=== PATIENT | male | born 1960 | race Caucasian/White ===

== ENCOUNTER 2021-06-11 11:07 | Emergency (ER) | payer BC, OTHER ==
--- NOTE | 2021-06-11 11:09 | ERPHSYRPT ---
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 Patient is not under significant amount of stress or different amount of stress than usual. That pain has now more localized centrally and in the substernal region and still described as a pressure. There is some sensation he has in his left upper extremity as well but the pain is not too bad there. Patient does have a history of hypothyroidism, hypertension and depression. He has history of psoriatic arthritis and has been off his methotrexate. He does take phentermine for weight loss. Patient states he took 2 baby aspirin prior to arrival. 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 Patient has not had any cardiac stents or heart surgeries performed in the past. Patient has had a sigmoidectomy in the past secondary to diverticulitis. In addition, he has had a history of a Adri fundoplication which was performed laparoscopically. Timing/Duration: today Quality: pressure Location: substernal, central Chest Pain Radiation: arm Severity of Pain-Max: moderate Severity of Pain-Current: mild (Mild to moderate in the emergency department) Modifying Factors: Improves With: nothing Associated Symptoms: denies symptoms Nitro Today/Relief: no nitro taken today Aspirin Treatment Today: 81 mg x 2, provided at home Allergies/Adverse Reactions: cefazolin Allergy (Verified 06/11/21 11:12) clarithromycin [From Biaxin] Allergy (Verified 06/11/21 11:12) Penicillins Allergy (Verified 06/11/21 11:12) Home Medications: Albuterol Sulfate [Albuterol Sulfate Hfa] 1 ea DAILY 06/11/21 [History] Citalopram Hydrobromide [Citalopram HBr] 1 ea DAILY 06/11/21 [History] Citalopram Hydrobromide [Citalopram HBr] 1 ea DAILY 06/11/21 [History] Eslicarbazepine Acetate [Aptiom] 1 ea DAILY 06/11/21 [History] Folic Acid 1 mg PO DAILY 06/11/21 [History] Levothyroxine Sodium [Levothyroxine] 125 mcg PO DAILY 06/11/21 [History] Lisinopril 10 mg [Zestril 10 MG] 20 mg DAILY 06/11/21 [History] Methotrexate Sodium 2.5 mg [Trexall 2.5 mg] 17.5 mg UD 06/11/21 [History] Nifedipine 10 mg [Procardia 10 mg] 1 ea DAILY 06/11/21 [History] Phentermine HCl 1 ea DAILY 06/11/21 [History] Travel Risk - International Travel Have you traveled outside of the country in past 3 weeks: No - Coronavirus Screening Are you exhibiting any of the following symptoms?: No Close contact with a COVID-19 positive Pt in past 14-21 Days: No - Review of Systems Constitutional: No Symptoms Eyes: No Symptoms Ears, Nose, & Throat: No Symptoms Respiratory: No Symptoms Cardiac: Chest Pain Abdominal/Gastrointestinal: No Symptoms Genitourinary Symptoms: No Symptoms Musculoskeletal: No Symptoms Skin: No Symptoms Neurological: No Symptoms Psychological: No Symptoms Endocrine: No Symptoms Hematologic/Lymphatic: No Symptoms Immunological/Allergic: No Symptoms All Other Systems: Reviewed and Negative - Past Medical History Pertinent Past Medical History: Yes - Past Surgical History Past Surgical History: Yes - Nursing Vital Signs Nursing Vital Signs: Initial Vital Signs Temperature 97.2 F 06/11/21 11:07 Pulse Rate 82 06/11/21 11:07 Respiratory Rate 18 06/11/21 11:07 Blood Pressure 150/85 06/11/21 11:07 O2 Sat by Pulse Oximetry 99 06/11/21 11:07 Pain Scale Pain Intensity 8 - Physical Exam General Appearance: no apparent distress, alert, anxiety Eye Exam: PERRL/EOMI, eyes nml inspection Ears, Nose, Throat Exam: normal ENT inspection, moist mucous membranes Neck Exam: normal inspection, non-tender, supple, full range of motion Respiratory Exam: normal breath sounds, chest tenderness, lungs clear, airway intact, No respiratory distress Cardiovascular Exam: regular rate/rhythm, normal heart sounds, normal peripheral pulses Gastrointestinal/Abdomen Exam: soft, normal bowel sounds, No tenderness Rectal Exam: not done Back Exam: normal inspection, normal range of motion, No CVA tenderness, No vertebral tenderness Extremity Exam: normal inspection, normal range of motion, pelvis stable Neurologic Exam: alert, oriented x 3, cooperative, terminal manager II-XII nml as tested, normal mood/affect, nml cerebellar function, nml station & gait, sensation nml Skin Exam: normal color, warm, dry Lymphatic Exam: No adenopathy SpO2 Interpretation: normal O2 Delivery: Room Air - Course Nursing assessment & vital signs reviewed: Yes EKG Interpreted by Me: RATE (85), Sinus Rhythm, NORMAL AXIS, NORMAL INTERVALS, NORMAL QRS, NORMAL ST-T, Other (No acute ischemic changes on today's EKG.) Ordered Tests: Active Orders 24 hr Category Date Time Status Hosting Engineer STAT Care 06/11/21 11:17 Active EKG-ER Only STAT Care 06/11/21 11:09 Active IV Insertion STAT Care 06/11/21 11:09 Active Pulse Oximetry (ED) STAT Care 06/11/21 11:09 Active CHEST 1 VIEW (PORTABLE) Stat Exams 06/11/21 11:10 Completed CHEST WITHOUT CONTRAST [CT] Stat Exams 06/11/21 13:44 Completed CBC W DIFF Stat Lab 06/11/21 11:10 Completed CMP Stat Lab 06/11/21 11:10 Completed D-DIMER QUANTITATIVE Stat Lab 06/11/21 11:10 Completed Manual Differential NC Stat Lab 06/11/21 11:10 Completed NT PRO BNP Stat Lab 06/11/21 11:10 Completed PROTIME WITH INR Stat Lab 06/11/21 11:10 Completed T4 (Thyroxine) Stat Lab 06/11/21 11:10 Completed TROPONIN Q3H Lab 06/11/21 11:10 Completed TROPONIN Q3H Lab 06/11/21 14:15 Completed TROPONIN Q3H Lab 06/11/21 17:15 Ordered TROPONIN Q3H Lab 06/11/21 20:15 Ordered TROPONIN Q3H Lab 06/11/21 23:15 Ordered TSH [TSH, 3RD Generation] Stat Lab 06/11/21 11:10 Completed Medication Summary Discontinued Medications Generic Name Dose Route Start Last Admin Trade Name Freq PRN Reason Stop Dose Admin Al Hydrox/Mg Hydrox/Simethicone Confirm 06/11/21 12:13 Mag Hydrox/Al Hydrox/Simeth 30 Ml Udcup Administered 06/11/21 12:14 Dose 30 ml .ROUTE .STK-MED ONE Aspirin 162 mg 06/11/21 11:37 06/11/21 11:42 Aspirin 81 Mg Tab.Chew PO 06/11/21 11:38 162 mg STAT ONE Administration Aspirin Confirm 06/11/21 11:39 Aspirin 81 Mg Tab.Chew Administered 06/11/21 11:40 Dose 162 mg .ROUTE .STK-MED ONE Lidocaine HCl Confirm 06/11/21 12:13 Lidocaine Hcl Viscous 1 Ml Administered 06/11/21 12:14 Dose 15 ml .ROUTE .STK-MED ONE Lorazepam 1 mg 06/11/21 12:10 06/11/21 12:17 Lorazepam 2 Mg/1 Ml 2 Mg Vial IV 06/11/21 12:11 1 mg STAT ONE Administration Lorazepam Confirm 06/11/21 12:12 Lorazepam 2 Mg/1 Ml 2 Mg Vial Administered 06/11/21 12:13 Dose 2 mg .ROUTE .STK-MED ONE Lorazepam 1 mg 06/11/21 15:25 Lorazepam 2 Mg/1 Ml 2 Mg Vial IV 06/11/21 15:26 STAT ONE Magnesium Hydroxide 45 ml 06/11/21 12:10 06/11/21 12:18 Mag Hydrx/Alum Hyd/Simeth/Lido 45 Ml Bottle PO 06/11/21 12:11 45 ml STAT ONE Administration Morphine Sulfate 2 mg 06/11/21 11:37 06/11/21 11:43 Morphine Sulfate 2 Mg/Ml Inj IV 06/11/21 11:38 2 mg STAT ONE Administration Morphine Sulfate Confirm 06/11/21 11:39 Morphine Sulfate 2 Mg/Ml Inj Administered 06/11/21 11:40 Dose 2 mg .ROUTE .STK-MED ONE Nitroglycerin 0.4 mg 06/11/21 11:37 06/11/21 11:42 Nitroglycerin 0.4 Mg (Ed) 0.4 Mg Tab.Subl SL 06/11/21 11:38 0.4 mg STAT ONE Administration Nitroglycerin Confirm 06/11/21 11:39 Nitroglycerin 0.4 Mg (Ed) 0.4 Mg Tab.Subl Administered 06/11/21 11:40 Dose 0.4 mg SL .STK-MED ONE Ondansetron HCl 4 mg 06/11/21 11:37 06/11/21 11:43 Ondansetron Hcl 4 Mg/2 Ml Vial IV 06/11/21 11:38 4 mg STAT ONE Administration Ondansetron HCl Confirm 06/11/21 11:39 Ondansetron Hcl 4 Mg/2 Ml Vial Administered 06/11/21 11:40 Dose 4 mg .ROUTE .STK-MED ONE Oxycodone/Acetaminophen 1 tab 06/11/21 13:00 06/11/21 13:22 Oxycodone Hcl/Apap 5 Mg/325 Mg Tablet PO 06/11/21 13:01 1 tab STAT STA Administration Oxycodone/Acetaminophen Confirm 06/11/21 13:21 Oxycodone Hcl/Apap 5 Mg/325 Mg Tablet Administered 06/11/21 13:22 Dose 1 tab .ROUTE .STK-MED ONE Lab/Rad Data: Laboratory Result Diagrams 06/11/21 11:10 06/11/21 11:10 Laboratory Results 06/11/21 06/11/21 06/11/21 Range/Units 14:15 11:10 11:10 WBC (4.0-10.5) K/mm3 RBC (4.1-5.6) M/mm3 Hgb (12.5-18.0) gm/dl Hct (42-50) % MCV (78-100) fl MCH (26-32) pg MCHC (32-36) g/dl RDW (11.5-14.0) % Plt Count (150-450) K/mm3 MPV (7.5-11.0) fl Segmented Neutrophils (36.-66.) % Band Neutrophils (0.0-2.0) % Lymphocytes (Manual) (24-44) % Monocytes (Manual) (0.0-12.0) % Platelet Estimate (NORMAL) RBC Morphology PT (9.4-12.5) SECONDS INR (0.8-3.0) D-Dimer (215-500) ng/mL Sodium (137-145) mmol/L Potassium (3.5-5.1) mmol/L Chloride (98-107) mmol/L Carbon Dioxide (22-30) mmol/L Anion Gap (5-15) MEQ/L BUN (9-20) mg/dL Creatinine (0.66-1.25) mg/dL Estimated GFR ML/MIN Glucose (74-106) mg/dL Calcium (8.4-10.2) mg/dL Total Bilirubin (0.2-1.3) mg/dL AST (17-59) U/L ALT (0-50) U/L Alkaline Phosphatase (38-126) U/L Troponin I < 0.012 (0.000-0.034) ng/mL NT-Pro-B Natriuret Pep (0-900) pg/mL Serum Total Protein (6.3-8.2) g/dL Albumin (3.5-5.0) g/dL Thyroxine (T4) 6.15 (5.53-10.96) ug/dL TSH 3rd Generation 8.380 H (0.47-4.68) mIU/L 06/11/21 06/11/21 06/11/21 Range/Units 11:10 11:10 11:10 WBC (4.0-10.5) K/mm3 RBC (4.1-5.6) M/mm3 Hgb (12.5-18.0) gm/dl Hct (42-50) % MCV (78-100) fl MCH (26-32) pg MCHC (32-36) g/dl RDW (11.5-14.0) % Plt Count (150-450) K/mm3 MPV (7.5-11.0) fl Segmented Neutrophils (36.-66.) % Band Neutrophils (0.0-2.0) % Lymphocytes (Manual) (24-44) % Monocytes (Manual) (0.0-12.0) % Platelet Estimate (NORMAL) RBC Morphology PT 12.2 (9.4-12.5) SECONDS INR 1.03 (0.8-3.0) D-Dimer < 215 L (215-500) ng/mL Sodium 133 L (137-145) mmol/L Potassium 4.1 (3.5-5.1) mmol/L Chloride 95 L (98-107) mmol/L Carbon Dioxide 26 (22-30) mmol/L Anion Gap 16.2 H (5-15) MEQ/L BUN 13 (9-20) mg/dL Creatinine 1.15 (0.66-1.25) mg/dL Estimated GFR > 60.0 ML/MIN Glucose 96 (74-106) mg/dL Calcium 9.0 (8.4-10.2) mg/dL Total Bilirubin 0.80 (0.2-1.3) mg/dL AST 30 (17-59) U/L ALT 21 (0-50) U/L Alkaline Phosphatase 123 (38-126) U/L Troponin I < 0.012 (0.000-0.034) ng/mL NT-Pro-B Natriuret Pep 38.7 (0-900) pg/mL Serum Total Protein 8.2 (6.3-8.2) g/dL Albumin 5.0 (3.5-5.0) g/dL Thyroxine (T4) (5.53-10.96) ug/dL TSH 3rd Generation (0.47-4.68) mIU/L 06/11/21 Range/Units 11:10 WBC 10.7 H (4.0-10.5) K/mm3 RBC 5.62 H (4.1-5.6) M/mm3 Hgb 17.2 (12.5-18.0) gm/dl Hct 51.1 H (42-50) % MCV 90.9 (78-100) fl MCH 30.6 (26-32) pg MCHC 33.7 (32-36) g/dl RDW 14.9 H (11.5-14.0) % Plt Count 287 (150-450) K/mm3 MPV 9.1 (7.5-11.0) fl Segmented Neutrophils 83 H (36.-66.) % Band Neutrophils 3 H (0.0-2.0) % Lymphocytes (Manual) 6 L (24-44) % Monocytes (Manual) 8 (0.0-12.0) % Platelet Estimate NORMAL (NORMAL) RBC Morphology NORMAL PT (9.4-12.5) SECONDS INR (0.8-3.0) D-Dimer (215-500) ng/mL Sodium (137-145) mmol/L Potassium (3.5-5.1) mmol/L Chloride (98-107) mmol/L Carbon Dioxide (22-30) mmol/L Anion Gap (5-15) MEQ/L BUN (9-20) mg/dL Creatinine (0.66-1.25) mg/dL Estimated GFR ML/MIN Glucose (74-106) mg/dL Calcium (8.4-10.2) mg/dL Total Bilirubin (0.2-1.3) mg/dL AST (17-59) U/L ALT (0-50) U/L Alkaline Phosphatase (38-126) U/L Troponin I (0.000-0.034) ng/mL NT-Pro-B Natriuret Pep (0-900) pg/mL Serum Total Protein (6.3-8.2) g/dL Albumin (3.5-5.0) g/dL Thyroxine (T4) (5.53-10.96) ug/dL TSH 3rd Generation (0.47-4.68) mIU/L - Progress Progress: improved, re-examined Air Movement: good Progress Note: 06/11/21 11:27 Chest x-ray shows no acute cardiopulmonary process. 06/11/21 12:36 Patient was reexamined because he was complaining of worsening chest pain despite aspirin, nitroglycerin and 2 mg of intravenous morphine. His vital signs are completely stable. He had a systolic blood pressure in the 120s his heart rate was in the 70s. We repeated the twelve-lead EKG which showed normal sinus rhythm with a heart rate of 78. There were no acute ischemic changes on the repeat EKG. Patient appears very anxious. His D-dimer is normal as is his troponin level. 06/11/21 15:18 Medical decision making: This patient has atypical chest pain. He also states he is very anxious and under stress. He also stated, after several discussions, he did do a lot of lifting yesterday a very heavy weights of items at his residence. He did this several times. His 0-hour and 3-hour troponins are normal. He has no documented history of any significant cardiac disease. His D-dimer was normal. I did do a CT of his chest and there are no acute findings there. There does not appear to be any leak of his esophagus or Adri fundoplication. His electrolytes are normal. He just seems very anxious. I will send him home and send a prescription of Norflex and prednisone to his pharmacy for management of muscle skeletal pain. 06/11/21 15:27 06/11/21 15:28 I had spoken with Dr. Whitehead, the doctor that the patient stated was his primary care doctor. Patient stated he has not seen the doctor in quite some time. When I told him I was going to contact that doctor, the patient stated that that doctor is useless. I did speak with Dr. Whitehead. He stated the last time he saw the patient was August 2020. His complaint at that time was abdominal pain. The patient was to undergo a CAT scan of the abdomen and pelvis but never followed up with that test even though it was ordered. Dr. Snell he does not recall that patient specifically. There was also note that in May of this year, the patient was seen at a walk-in clinic to be evaluated for chest pain. The date was June 03 2021. Blood Culture(s) Obtained: No Antibiotics given: No Counseled pt/family regarding: lab results, diagnosis, need for follow-up, rad results - Departure Departure Disposition: Home Clinical Impression: Chest pain, Musculoskeletal pain, Anxiety about health Condition: Stable Critical Care Time: No Referrals: GOYO VICTORIA [Primary Care Provider] - Follow up/PCP as directed Additional Instructions: Call your head of marketing analytics tomorrow morning for further management. Take your medication as prescribed. Prescriptions: Prednisone 10 mg [Deltasone 10 mg] 10 mg PO TID #12 tablet Orphenadrine Citrate 100 mg [Norflex 100 MG Tablet] 100 mg PO BID #10 tab
--- NOTE | 2021-06-11 11:25 | XRAY ---
Indication: Chest pain and short of breath. Comparison: None Portable apical lordotic chest is clear. Heart not enlarged. Bony thorax intact with mild osteopenic and degenerative changes. Impression: Nonacute chest with chronic bony findings.
[2021-06-11 11:32] LABS: INR 1.03 (0.8-3.0); PROTIME 12.2 SECONDS (9.4-12.5)
[2021-06-11] MEDS ORDERED: MORPHINE SULFATE 2 MG INJ IV ONE (11:37)
[2021-06-11] MEDS ORDERED: BABY ASPIRIN 81 MG CHEW PO ONE (11:37)
[2021-06-11] MEDS ORDERED: Nitrostat 0.4 MG (ED) SL ONE ×2 (11:37→11:39)
[2021-06-11] MEDS ORDERED: Zofran 4 MG/2 ML VIAL IV ONE (11:37)
[2021-06-11 11:38] LABS: Hematocrit 51.1 % (42-50); Hemoglobin 17.2 gm/dl (12.5-18.0); Mean Cell Volume 90.9 fl (78-100); Mean Corpuscular Hemoglobin 30.6 pg (26-32); Mean Corpuscular Hgb Concent. 33.7 g/dl (32-36); Mean Platelet Volume 9.1 fl (7.5-11.0); Platelet Count 287 K/mm3 (150-450); Red Blood Count 5.62 M/mm3 (4.1-5.6); Red Cell Distribution Width 14.9 % (11.5-14.0); White Blood Count 10.7 K/mm3 (4.0-10.5)
[2021-06-11] MEDS ORDERED: BABY ASPIRIN 81 MG CHEW ONE (11:39)
[2021-06-11] MEDS ORDERED: Zofran 4 MG/2 ML VIAL ONE (11:39)
[2021-06-11] MEDS ORDERED: MORPHINE SULFATE 2 MG INJ ONE (11:39)
[2021-06-11 11:47] LABS: ALKALINE PHOSPHATASE 123 U/L (38-126); ANION GAP 16.2 MEQ/L (5-15); BLOOD UREA NITROGEN 13 mg/dL (9-20); CHLORIDE 95 mmol/L (98-107); Carbon Dioxide 26 mmol/L (22-30); Creatinine 1 1.15 mg/dL (0.66-1.25); D-DIMER QUANTITATIVE < 215 ng/mL (215-500); EST GLOMERULAR FILTRATION RATE > 60.0 ML/MIN; Glucose 96 mg/dL (74-106); NT PRO BNP 38.7 pg/mL (0-900); Potassium 4.1 mmol/L (3.5-5.1); SGOT/AST 30 U/L (17-59); SGPT/ALT 21 U/L (0-50); SODIUM 133 mmol/L (137-145); Total Protein 8.2 g/dL (6.3-8.2)
[2021-06-11] MEDS ORDERED: GI COCKTAIL 45 ML (Maalox/Lidocaine) PO ONE (12:10)
[2021-06-11] MEDS ORDERED: Ativan 2 MG/1 ML VIAL IV ONE ×2 (12:10→15:25)
[2021-06-11] MEDS ORDERED: Ativan 2 MG/1 ML VIAL ONE ×2 (12:12→15:31)
[2021-06-11] MEDS ORDERED: XYLOCAINE HCl Viscous ONE (12:13)
[2021-06-11] MEDS ORDERED: MAALOX ES 30 ML UNIT DOSE ONE (12:13)
[2021-06-11] MEDS ORDERED: PERCOCET TABLET 5/325MG PO STA (13:00)
[2021-06-11] MEDS ORDERED: PERCOCET TABLET 5/325MG ONE (13:21)
--- NOTE | 2021-06-11 14:10 | XRAY ---
Indication: Substernal chest pain. Multiple contiguous axial images obtained through the chest without contrast. Comparison: None Lungs demonstrates mild bilateral dependent atelectasis. No suspicious pulmonary mass, infiltrate, effusion, or pneumothorax. Heart not enlarged. Aorta is normal in course and caliber. No pathologic mediastinal lymphadenopathy. Bony thorax intact with minimal degenerative changes throughout the spine. Limited upper abdomen demonstrates GE junction postsurgical changes. Impression: 1. Bilateral dependent atelectasis, degenerative spondylosis, and GE junction postsurgical changes. 2. Remaining CT chest without contrast exam is negative.
[2021-06-11 15:04] VITALS: BP 139/89; O2SAT 96
[2021-06-11 15:14] LABS: BAND 3 % (0.0-2.0); Lymphocytes 6 % (24-44); Monocyte 8 % (0.0-12.0); Neutrophils 83 % (36.-66.); Total Cells Counted 100
[2021-06-11 15:15] LABS: Platelet Estimate NORMAL (NORMAL)
[2021-06-11 15:23] VITALS: PULSE 89
== END 2021-06-11 15:53 | disposition home or self-care (01) ==
LOC: ED 11:07
DX: R07.89 Other chest pain (principal); F41.9 Anxiety disorder, unspecified; E03.9 Hypothyroidism, unspecified; I10 Essential (primary) hypertension; F32.A Depression, unspecified; L40.50 Arthropathic psoriasis, unspecified; K57.32 Diverticulitis of large intestine without perforation or abscess without bleeding; Z79.899 Other long term (current) drug therapy; Z79.52 Long term (current) use of systemic steroids
CPT/HCPCS: 36000; 36415; 71045; 71250; 80053; 83880; 84436; 84443; 84484; 85025; 85379; 85610; 93005; 93041; 94760; 96374; 96375; 99285; J2060; J2270; J2405; A9270-GY

== ENCOUNTER 2023-05-01 16:59 | Emergency (ER) | payer MEDICARE, OTHER, BC ==
--- NOTE | 2023-05-01 17:06 | ERPHSYRPT ---
- History of Present Illness Time Seen by Provider: 05/01/23 17:06 Source: patient, family Exam Limitations: no limitations Physician History: This is a 63-year-old white male patient who presents with what he thinks is diverticulitis. Patient has had several episodes of colonic diverticulitis. On 1 occasion it required surgical resection. On Thursday, prior to this evaluation, patient was started on Cipro and Flagyl that he received from his primary care provider because of the possibility of having a recurrent episode of his diverticulitis. However, the patient states that that, unlike the other episodes where Cipro and Flagyl resolved his symptoms, the patient's left lower quadrant and suprapubic abdominal pain have actually worsened. There is even some pain on the right side of his lower abdomen. He has constant pressure in this area and intermittent sharp pains. He has not had any nausea vomiting or diarrhea symptoms. Patient is on methotrexate for psoriatic arthritis. He has a history of seizure disorder, coronary artery disease, hypertension and hypothyroidism. He denies chest pain. Timing/Duration: today Severity: mild (To moderate) Associated Symptoms: abdominal pain (Left lower abdomen) Allergies/Adverse Reactions: cefazolin Allergy (Verified 05/01/23 17:20) clarithromycin [From Biaxin] Allergy (Verified 05/01/23 17:20) Penicillins Allergy (Verified 05/01/23 17:20) Home Medications: Albuterol Sulfate [Albuterol Sulfate Hfa] 1 ea DAILY 06/11/21 [History] Citalopram Hydrobromide [Citalopram HBr] 1 ea DAILY 06/11/21 [History] Citalopram Hydrobromide [Citalopram HBr] 1 ea DAILY 06/11/21 [History] Eslicarbazepine Acetate [Aptiom] 1 ea DAILY 06/11/21 [History] Folic Acid 1 mg PO DAILY 06/11/21 [History] Levothyroxine Sodium [Levothyroxine] 125 mcg PO DAILY 06/11/21 [History] Lisinopril 10 mg [Zestril 10 MG] 20 mg DAILY 06/11/21 [History] Methotrexate Sodium 2.5 mg [Trexall 2.5 mg] 17.5 mg UD 06/11/21 [History] Nifedipine 10 mg [Procardia 10 mg] 1 ea DAILY 06/11/21 [History] Phentermine HCl 1 ea DAILY 06/11/21 [History] Hx Tetanus, Diphtheria Vaccination/Date Given: No Hx Influenza Vaccination/Date Given: Yes Hx Pneumococcal Vaccination/Date Given: No Travel Risk - International Travel Have you traveled outside of the country in past 3 weeks: No - Coronavirus Screening Are you exhibiting any of the following symptoms?: No Close contact with a COVID-19 positive Pt in past 14-21 Days: No - Vaccine Status Have you recieved a Covid-19 vaccination: Yes Spacer Type Bar And Segment: Moderna - Vaccination Dates Date of 2cond Vaccination (if applicable): 2020 - Review of Systems Constitutional: No Symptoms Eyes: No Symptoms Ears, Nose, & Throat: No Symptoms Respiratory: No Symptoms Cardiac: No Symptoms Abdominal/Gastrointestinal: Abdominal Pain, No Nausea (Left lower abdomen), No Vomiting, No Diarrhea, No Constipation, No Appetite Changes Genitourinary Symptoms: No Symptoms Musculoskeletal: No Symptoms Skin: No Symptoms Neurological: No Symptoms Psychological: No Symptoms Endocrine: No Symptoms Hematologic/Lymphatic: No Symptoms Immunological/Allergic: No Symptoms All Other Systems: Reviewed and Negative - Past Medical History Pertinent Past Medical History: Yes Neurological History: Seizures Cardiac History: Coronary Artery Disease, Hypertension Endocrine Medical History: Hypothyroidism GI Medical History: Diverticulitis Other Medical History: soriaic arthritis - Past Surgical History Past Surgical History: Yes Gastrointestinal: Bowel Surgery Musculoskeletal: Orthopedic Surgery Other Surgical History: knee,shoulders,hip, - Social History Smoking Status: Never smoker Exposure to second hand smoke: No Drug Use: none Patient Lives Alone: Yes - Nursing Vital Signs Nursing Vital Signs: Initial Vital Signs Temperature 98.1 F 05/01/23 17:00 Pulse Rate 61 05/01/23 17:00 Respiratory Rate 17 05/01/23 17:00 Blood Pressure 191/107 05/01/23 17:00 O2 Sat by Pulse Oximetry 99 05/01/23 17:00 Pain Scale Pain Intensity 0 - Physical Exam General Appearance: no apparent distress, alert, anxiety Eye Exam: PERRL/EOMI, eyes nml inspection Ears, Nose, Throat Exam: normal ENT inspection, moist mucous membranes Neck Exam: normal inspection, non-tender, supple, full range of motion Respiratory Exam: normal breath sounds, lungs clear, airway intact, No chest tenderness, No respiratory distress Cardiovascular Exam: regular rate/rhythm, normal heart sounds, normal peripheral pulses Gastrointestinal/Abdomen Exam: soft, normal bowel sounds, tenderness (Left lower abdomen), guarding (Left lower abdomen to palpation), No rebound Rectal Exam: not done Back Exam: normal inspection, normal range of motion, No CVA tenderness, No vertebral tenderness Extremity Exam: normal inspection, normal range of motion, pelvis stable Neurologic Exam: alert, oriented x 3, cooperative, 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, normal mood/affect, nml cerebellar function, nml station & gait, sensation nml Skin Exam: normal color, warm, dry Lymphatic Exam: No adenopathy SpO2 Interpretation: normal O2 Delivery: Room Air - Course Nursing assessment & vital signs reviewed: Yes Ordered Tests: Active Orders 24 hr Category Date Time Status IV Insertion STAT Care 05/01/23 17:41 Active ABDOMEN AND PELVIS W/0 CONTRAS [CT] Stat Exams 05/01/23 17:42 Taken AMYLASE Stat Lab 05/01/23 17:50 Completed CBC W DIFF Stat Lab 05/01/23 17:50 Completed CMP Stat Lab 05/01/23 17:50 Completed CULTURE,URINE Stat Lab 05/01/23 17:55 Received LIPASE Stat Lab 05/01/23 17:50 Completed Lactic Acid Stat Lab 05/01/23 18:10 Completed UA W/RFX UR CULTURE Stat Lab 05/01/23 17:55 Completed Medication Summary Generic Name Dose Route Start Last Admin Trade Name Freq PRN Reason Stop Dose Admin Sodium Chloride 1,000 mls @ 250 mls/hr 05/01/23 17:45 05/01/23 18:22 Sodium Chloride 0.9% 1000 Ml IV 05/31/23 17:44 250 mls/hr .Q4H FERNANDO Administration Discontinued Medications Generic Name Dose Route Start Last Admin Trade Name Freq PRN Reason Stop Dose Admin Hydromorphone HCl 1 mg 05/01/23 18:00 05/01/23 18:23 Hydromorphone 1 Mg/1ml Inj IV 05/01/23 18:01 1 mg STAT ONE Administration Hydromorphone HCl Confirm 05/01/23 18:18 Hydromorphone 1 Mg/1ml Inj Administered 05/01/23 18:19 Dose 1 mg .ROUTE .STK-MED ONE Ondansetron HCl 4 mg 05/01/23 18:00 05/01/23 18:22 Ondansetron Hcl 4 Mg/2 Ml Vial IV 05/01/23 18:01 4 mg STAT ONE Administration Ondansetron HCl Confirm 05/01/23 18:18 Ondansetron Hcl 4 Mg/2 Ml Vial Administered 05/01/23 18:19 Dose 4 mg .ROUTE .STK-MED ONE Lab/Rad Data: Laboratory Result Diagrams 05/01/23 17:50 05/01/23 17:50 Laboratory Results 05/01/23 05/01/23 05/01/23 Range/Units 18:10 17:55 17:50 WBC (4.0-10.5) x10^3/uL RBC (4.1-5.6) x10^6/uL Hgb (12.5-18.0) g/dL Hct (42-50) % MCV (78-100) fL MCH (26-32) pg MCHC (32-36) g/dL RDW (11.5-14.0) % Plt Count (150-450) x10^3/uL MPV (7.5-11.0) fL Gran % (36.0-66.0) % Immature Gran % (Auto) (0.00-0.4) % Nucleat RBC Rel Count (0.00-0.1) % Eos # (Auto) (0-0.5) x10^3/uL Immature Gran # (Auto) (0.00-0.03) x10^3u/L Absolute Lymphs (auto) (1.0-4.6) x10^3/uL Absolute Monos (auto) (0.0-1.3) x10^3/uL Absolute Nucleated RBC (0.00-0.01) x10^3u/L Lymphocytes % (24.0-44.0) % Monocytes % (0.0-12.0) % Eosinophils % (0.00-5.0) % Basophils % (0.0-0.4) % Absolute Granulocytes (1.4-6.9) x10^3/uL Basophils # (0-0.4) x10^3/uL Sodium 129 L (137-145) mmol/L Potassium 3.6 (3.5-5.1) mmol/L Chloride 100 (98-107) mmol/L Carbon Dioxide 24 (22-30) mmol/L Anion Gap 9.1 (5-15) MEQ/L BUN 17 (9-20) mg/dL Creatinine 1.18 (0.66-1.25) mg/dL Estimated GFR 68.5 ML/MIN Glucose 119 H (74-106) mg/dL Lactic Acid 1.0 (0.4-2.0) Calcium 8.4 (8.4-10.2) mg/dL Total Bilirubin 0.20 (0.2-1.3) mg/dL AST 33 (17-59) U/L ALT 35 (0-50) U/L Alkaline Phosphatase 88 (38-126) U/L Serum Total Protein 6.7 (6.3-8.2) g/dL Albumin 3.8 (3.5-5.0) g/dL Amylase 82 (30-110) U/L Lipase 47 (23-300) U/L Urine Color Yellow (Yellow) Urine Appearance Clear (Clear) Urine pH 6.0 (4.6-8.0) Ur Specific [place] 1.025 (1.005-1.030) Urine Protein Negative (Negative) Urine Glucose (UA) Negative (Negative) mg/dL Urine Ketones Trace A (Negative) Urine Blood Moderate A (Negative) Urine Nitrite Negative (Negative) Urine Bilirubin Negative (Negative) Urine Urobilinogen 0.2 (0.2) mg/dL Ur Leukocyte Esterase Trace A (Negative) U Hyaline Cast (Auto) NONE SEEN (0-2) /LPF Urine Microscopic RBC 21-50 A (0-5) /HPF Urine Microscopic WBC 0-2 (0-5) /HPF Ur Epithelial Cells None Seen (None Seen) /HPF Urine Bacteria None Seen (None Seen) /HPF Urine Culture Reflexed YES (NO) 05/01/23 Range/Units 17:50 WBC 6.5 (4.0-10.5) x10^3/uL RBC 4.49 (4.1-5.6) x10^6/uL Hgb 14.2 (12.5-18.0) g/dL Hct 42.6 (42-50) % MCV 94.9 (78-100) fL MCH 31.6 (26-32) pg MCHC 33.3 (32-36) g/dL RDW 12.9 (11.5-14.0) % Plt Count 210 (150-450) x10^3/uL MPV 9.0 (7.5-11.0) fL Gran % 61.3 (36.0-66.0) % Immature Gran % (Auto) 0.6 H (0.00-0.4) % Nucleat RBC Rel Count 0.0 (0.00-0.1) % Eos # (Auto) 0.13 (0-0.5) x10^3/uL Immature Gran # (Auto) 0.04 H (0.00-0.03) x10^3u/L Absolute Lymphs (auto) 1.53 (1.0-4.6) x10^3/uL Absolute Monos (auto) 0.71 (0.0-1.3) x10^3/uL Absolute Nucleated RBC 0.00 (0.00-0.01) x10^3u/L Lymphocytes % 23.7 L (24.0-44.0) % Monocytes % 11.0 (0.0-12.0) % Eosinophils % 2.0 (0.00-5.0) % Basophils % 1.4 (0.0-0.4) % Absolute Granulocytes 3.96 (1.4-6.9) x10^3/uL Basophils # 0.09 (0-0.4) x10^3/uL Sodium (137-145) mmol/L Potassium (3.5-5.1) mmol/L Chloride (98-107) mmol/L Carbon Dioxide (22-30) mmol/L Anion Gap (5-15) MEQ/L BUN (9-20) mg/dL Creatinine (0.66-1.25) mg/dL Estimated GFR ML/MIN Glucose (74-106) mg/dL Lactic Acid (0.4-2.0) Calcium (8.4-10.2) mg/dL Total Bilirubin (0.2-1.3) mg/dL AST (17-59) U/L ALT (0-50) U/L Alkaline Phosphatase (38-126) U/L Serum Total Protein (6.3-8.2) g/dL Albumin (3.5-5.0) g/dL Amylase (30-110) U/L Lipase (23-300) U/L Urine Color (Yellow) Urine Appearance (Clear) Urine pH (4.6-8.0) Ur Specific [place] (1.005-1.030) Urine Protein (Negative) Urine Glucose (UA) (Negative) mg/dL Urine Ketones (Negative) Urine Blood (Negative) Urine Nitrite (Negative) Urine Bilirubin (Negative) Urine Urobilinogen (0.2) mg/dL Ur Leukocyte Esterase (Negative) U Hyaline Cast (Auto) (0-2) /LPF Urine Microscopic RBC (0-5) /HPF Urine Microscopic WBC (0-5) /HPF Ur Epithelial Cells (None Seen) /HPF Urine Bacteria (None Seen) /HPF Urine Culture Reflexed (NO) - Progress Progress Note: 05/01/23 18:08 This patient's medical issue is 1 of moderate complexity. The level complex in the workup performed is based on review the patient's past medical history, review the patient's medication list, review the patient drug allergy list, history of present illness and physical findings on examination. This patient's workup includes placement of intravenous line, infusion of normal saline solution, infusion of Dilaudid, infusion of Zofran, CBC, CMP, lactic acid level, urinalysis, CT scan of the abdomen pelvis without contrast. 05/01/23 20:24 I interpreted the patient's laboratory data workup. The patient has a mildly decreased sodium level 129. He also has a mild UTI. Patient is on Cipro and Flagyl. He is to continue this medication. CT scan of the abdomen pelvis without contrast was interpreted by the radiologist and I reviewed the interpretation. Impression states there is no comparison films. There is descending and sigmoid colon diverticulosis without gross diverticulitis. There is 7 cm left renal cyst and a small fatty left inguinal hernia. These findings were discussed in detail with the patient and his spouse. Counseled pt/family regarding: lab results, diagnosis, rad results Medical Desision Making - Independent Historian Additional History obtained from: Spouse - Diagnostic Testing Diagnostic test were ordered, analyzed, and reviewed by me: Yes Radiological Interpretation: Reviewed by me, Teleradiologist Report - Risk of complications The pt has a mod risk of morbidity or mortality based on: Need for prescription drug management - Departure Departure Disposition: Home Clinical Impression: UTI (urinary tract infection), Hyponatremia, Renal cyst, left Condition: Stable Critical Care Time: No Referrals: GOYO VICTORIA [Primary Care Provider] - Follow up/PCP as directed Additional Instructions: Drink plenty of fluids. Take your antibiotics as prescribed follow-up with your primary care provider next week to make arranges for follow-up appointment to address your mild low sodium and your left renal cyst. Prescriptions: Hydrocodone/APAP 5/325 [Orestes 5/325 mg] 1 each PO Q8H PRN PRN #6 tablet MDD 3 PRN Reason: Pain
[2023-05-01 17:29] VITALS: TEMP 98.1
[2023-05-01] MEDS ORDERED: Sodium Chloride 0.9% 1000 ML 1,000 ML IV SCH (17:45)
[2023-05-01] MEDS ORDERED: Zofran 4 MG/2 ML VIAL IV ONE (18:00)
[2023-05-01] MEDS ORDERED: Hydromorphone 1 mg/ml Injection IV ONE (18:00)
[2023-05-01 18:11] LABS: Absolute Neutrophil Ct (ANC) 3.96 x10^3/uL (1.4-6.9); BASOPHIL % 1.4 % (0.0-0.4); Basophil (Absolute #) 0.09 x10^3/uL (0-0.4); Eosinophil (Absolute #) 0.13 x10^3/uL (0-0.5); Hematocrit 42.6 % (42-50); Hemoglobin 14.2 g/dL (12.5-18.0); IMMATURE GRAN # 0.04 x10^3u/L (0.00-0.03); IMMATURE GRAN % 0.6 % (0.00-0.4); Lymphocyte (Absolute #) 1.53 x10^3/uL (1.0-4.6); Lymphocytes % 23.7 % (24.0-44.0); Mean Cell Volume 94.9 fL (78-100); Mean Corpuscular Hemoglobin 31.6 pg (26-32); Mean Corpuscular Hgb Concent. 33.3 g/dL (32-36); Monocyte (Absolute #) 0.71 x10^3/uL (0.0-1.3); Neutrophil % 61.3 % (36.0-66.0); Platelet Count 210 x10^3/uL (150-450); Red Blood Count 4.49 x10^6/uL (4.1-5.6); Red Cell Distribution Width 12.9 % (11.5-14.0); White Blood Count 6.5 x10^3/uL (4.0-10.5)
[2023-05-01 18:17] LABS: Appearance Clear (Clear); Bacteria None Seen /HPF (None Seen); Bilirubin Negative (Negative); Blood Moderate (Negative); Epithelial Cells None Seen /HPF (None Seen); Glucose, Urine Negative (Negative); Hyaline Casts NONE SEEN /LPF (0-2); Ketones Trace (Negative); Leukocyte Esterase Trace (Negative); Nitrite Negative (Negative); Protein,Urine Dip Negative (Negative); RBC 21-50 /HPF (0-5); Specific Gravity 1.025 (1.005-1.030); Urobilinogen 0.2 mg/dL (0.2); WBC 0-2 /HPF (0-5)
[2023-05-01] MEDS ORDERED: Hydromorphone 1 mg/ml Injection ONE (18:18)
[2023-05-01] MEDS ORDERED: Sodium Chloride 0.9% 1000 ML 1,000 ML ONE (18:18)
[2023-05-01] MEDS ORDERED: Zofran 4 MG/2 ML VIAL ONE (18:18)
[2023-05-01 18:19] LABS: ADD URINE CULTURE? YES (NO)
[2023-05-01 18:27] LABS: ALBUMIN 3.8 g/dL (3.5-5.0); ANION GAP 9.1 MEQ/L (5-15); BILIRUBIN,TOTAL 0.2 mg/dL (0.2-1.3); Calcium 8.4 mg/dL (8.4-10.2); Creatinine 1 1.18 mg/dL (0.66-1.25); EST GLOMERULAR FILTRATION RATE 68.5 ML/MIN; Potassium 3.6 mmol/L (3.5-5.1); Total Protein 6.7 g/dL (6.3-8.2)
[2023-05-01 19:29] VITALS: O2SAT 95
[2023-05-01 20:35] VITALS: BP 161/95; PULSE 56; RESP 12
--- NOTE | 2023-05-01 22:05 | XRAY ---
Indication: Lower abdominal pain. History diverticulitis. Multiple contiguous axial images obtained through the abdomen and pelvis without contrast. Comparison: None There is diffuse respiration artifact throughout limiting exam. Lung bases grossly clear. Heart not enlarged. Surgical francisco at GE junction. Stomach distended with food. Gallbladder contracted without gallstones. Noncontrasted stomach and bowel loops appear grossly nonobstructed. Previous appendectomy reported. Mild scattered descending and sigmoid diverticulosis without gross diverticulitis. 7 cm left lower renal cyst. No free fluid/air. Remaining liver, gallbladder, pancreas, spleen, adrenal glands, kidneys, ureters, and bladder are unremarkable for noncontrast exam. Minimal aortoiliac calcifications without AAA. Osseous structures intact with minimal/mild degenerative changes throughout the spine. Small fatty left inguinal hernia. Impression: 1. Diffuse respiration artifact. 2. Colonic diverticulosis without gross diverticulitis. 3. Chronic findings including left renal cyst, arteriosclerotic disease, degenerative spondylosis, and fatty left inguinal hernia. 4. Remaining CT abdomen/pelvis without contrast exam is grossly negative.
== END 2023-05-01 20:49 | disposition home or self-care (01) ==
LOC: ED 16:59
DX: N39.0 Urinary tract infection, site not specified (principal); E87.1 Hypo-osmolality and hyponatremia; N28.1 Cyst of kidney, acquired; R10.32 Left lower quadrant pain; R10.2 Pelvic and perineal pain; I10 Essential (primary) hypertension; Z79.891 Long term (current) use of opiate analgesic; Z79.899 Other long term (current) drug therapy
CPT/HCPCS: 36000; 36415; 74176; 80053; 81001; 82150; 83605; 83690; 85025; 87086; 96374; 96375; 99284; J1170; J2405

== ENCOUNTER 2024-03-05 13:49 | Emergency (ER) | payer MEDICARE, BC, OTHER ==
--- NOTE | 2024-03-05 16:29 | ERPHSYRPT ---
- History of Present Illness Time Seen by Provider: 03/05/24 16:15 Historian: patient Exam Limitations: no limitations Patient Subjective Stated Complaint: LEFT SIDED BACK PAIN FOR OVER A WEEK NOW, WAS RECENTLY DX WITH A TUMOR OR CYST IN LEFT KIDNEY. HAS APT IN NOV WITH SP ECIALIST, LAYING HELPS PAIN, NO INJURY Triage Nursing Assessment: PT ALERT, WALKED IN, RESP EASY, SKIN W/D/P. NO EDEMA NOTED, MOVES ALL EXT WELL, NO DIFFICULTY WITH BOWEL OR BLADDER Physician History: For the past 2 weeks pt has had constant left back/flank pain which is sharp today; denies chest pain, shortness of air, vomiting, diarrhea. Allergies/Adverse Reactions: cefazolin Allergy (Verified 03/05/24 14:37) clarithromycin [From Biaxin] Allergy (Verified 03/05/24 14:37) Penicillins Allergy (Verified 03/05/24 14:37) Home Medications: Albuterol Sulfate [Albuterol Sulfate Hfa] 1 ea DAILY 06/11/21 [History] Citalopram Hydrobromide [Citalopram HBr] 1 ea DAILY 06/11/21 [History] Folic Acid 1 mg PO DAILY 06/11/21 [History] Levothyroxine Sodium [Levothyroxine] 125 mcg PO DAILY 06/11/21 [History] Lisinopril 10 mg [Zestril 10 MG] 20 mg DAILY 06/11/21 [History] Methotrexate Sodium 2.5 mg [Trexall 2.5 mg] 17.5 mg UD 06/11/21 [History] Amlodipine Besylate 5 mg [Norvasc 5 mg] 2.5 mg PO DAILY 03/05/24 [History] Eslicarbazepine Acetate [Aptiom] 1 ea DAILY 03/05/24 [History] Semaglutide [Wegovy] 1 mg SQ UD 03/05/24 [History] Testosterone Enanthate [Xyosted] 75 mg SQ UD 03/05/24 [History] Trazodone HCl 50 mg [Desyrel 50 mg] 50 mg PO DAILY 03/05/24 [History] Hx Tetanus, Diphtheria Vaccination/Date Given: No Hx Influenza Vaccination/Date Given: No Hx Pneumococcal Vaccination/Date Given: No Immunizations Up to Date: Yes Travel Risk - International Travel Have you traveled outside of the country in past 3 weeks: No - Emerging Infectious Disease Are you exhibiting symptoms associated with any current EIDs: No - Review of Systems Ears, Nose, & Throat: No Ear Pain, No Throat Pain Respiratory: No Dyspnea Cardiac: No Chest Pain Abdominal/Gastrointestinal: Other (left flank/back pain) Skin: No Rash Neurological: No Headache - Past Medical History Pertinent Past Medical History: Yes Neurological History: Seizures Cardiac History: Coronary Artery Disease, Hypertension Endocrine Medical History: Hypothyroidism GI Medical History: Diverticulitis Other Medical History: soriaic arthritis,KIDNEY CYST 2023 - Past Surgical History Past Surgical History: Yes Gastrointestinal: Bowel Surgery Musculoskeletal: Orthopedic Surgery Other Surgical History: knee,shoulders,hip, - Social History Smoking Status: Never smoker Exposure to second hand smoke: No Drug Use: none Patient Lives Alone: Yes - Social Determinants of Health Will the patient participate in the screening: Declined to provide - Nursing Vital Signs Nursing Vital Signs: Initial Vital Signs Temperature 97.5 F 03/05/24 14:30 Pulse Rate 68 03/05/24 14:30 Respiratory Rate 18 03/05/24 14:30 Blood Pressure 155/88 03/05/24 14:30 O2 Sat by Pulse Oximetry 98 03/05/24 14:30 Pain Scale Pain Intensity [] 6 Pain Intensity 3 - Physical Exam General Appearance: alert Eye Exam: eyes nml inspection Ears, Nose, Throat Exam: pharynx normal, moist mucous membranes Neck Exam: normal inspection Respiratory Exam: lungs clear Cardiovascular Exam: normal heart sounds Gastrointestinal/Abdomen Exam: normal bowel sounds Back Exam: point tenderness (mild tenderness over mid left flank) Neurologic Exam: alert, cooperative Skin Exam: warm, dry SpO2 Interpretation: normal SpO2: 98 O2 Delivery: Room Air - Course Nursing assessment & vital signs reviewed: Yes - CT Exams Abdomen/Pelvis CT Interpretation: Tele-radiologist Report (Diverticular disease of the descending colon with subtle surrounding fat smudging possibly an element of diverticulitis. See rest of report.) Ordered Tests: Active Orders 24 hr Category Date Time Status IV Insertion STAT Care 03/05/24 17:28 Active ABDOMEN AND PELVIS W/0 CONTRAS [CT] Stat Exams 03/05/24 17:29 Completed AMYLASE Stat Lab 03/05/24 17:50 Completed CBC W DIFF Stat Lab 03/05/24 17:50 Completed CMP Stat Lab 03/05/24 17:50 Completed LIPASE Stat Lab 03/05/24 17:50 Completed MAGNESIUM Stat Lab 03/05/24 17:50 Completed UA W/RFX UR CULTURE Stat Lab 03/05/24 17:33 Completed Medication Summary Discontinued Medications Generic Name Dose Route Start Last Admin Trade Name Felicity PRN Reason Stop Dose Admin Ketorolac Tromethamine 15 mg 03/05/24 17:28 03/05/24 17:57 Ketorolac Tromethamine 30 Mg/Ml Inj IV 03/05/24 17:29 15 mg STAT ONE Administration Ketorolac Tromethamine Confirm 03/05/24 17:55 Ketorolac Tromethamine 30 Mg/Ml Inj Administered 03/05/24 17:56 Dose 30 mg .ROUTE .STK-MED ONE Lab/Rad Data: Laboratory Result Diagrams 03/05/24 17:50 03/05/24 17:50 Laboratory Results 03/05/24 03/05/24 03/05/24 Range/Units 17:50 17:50 17:50 WBC 7.9 (4.23-9.07) x10^3/uL RBC 5.14 (4.63-6.08) x10^6/uL Hgb 16.5 (13.7-17.5) g/dL Hct 47.9 (40.1-51.0) % MCV 93.2 H (79.0-92.2) fL MCH 32.1 (25.7-32.2) pg MCHC 34.4 (32.3-36.5) g/dL RDW 13.3 (11.6-14.4) % Plt Count 217 (163-337) x10^3/uL MPV 8.6 L (9.4-12.4) fL Gran % 61.6 (34.0-67.9) % Immature Gran % (Auto) 0.5 H (0.001-0.429) % Nucleat RBC Rel Count 0.0 (0.00-0.2) % Eos # (Auto) 0.19 (0.04-0.54) x10^3/uL Immature Gran # (Auto) 0.04 H (0.001-0.031) x10^3u/L Absolute Lymphs (auto) 1.98 (1.32-3.57) x10^3/uL Absolute Monos (auto) 0.73 (0.30-0.82) x10^3/uL Absolute Nucleated RBC 0.00 (0.00-0.012) x10^3u/L Lymphocytes % 25.2 (21.8-53.1) % Monocytes % 9.3 (5.3-12.2) % Eosinophils % 2.4 (0.8-7.0) % Basophils % 1.0 (0.2-1.2) % Absolute Granulocytes 4.84 (1.78-5.38) x10^3/uL Basophils # 0.08 (0.01-0.08) x10^3/uL Sodium 132 L (135-145) mmol/L Potassium 4.2 (3.5-5.1) mmol/L Chloride 97 L (98-107) mmol/L Carbon Dioxide 27 (22-30) mmol/L Anion Gap 11.9 (5-15) MEQ/L BUN 13 (9-20) mg/dL Creatinine 1.19 (0.66-1.25) mg/dL Estimated GFR 67.8 ML/MIN Glucose 91 (74-106) mg/dL Calcium 9.1 (8.4-10.2) mg/dL Magnesium 2.2 (1.6-2.3) mg/dL Total Bilirubin 0.70 (0.2-1.3) mg/dL AST 33 (17-59) U/L ALT 33 (0-50) U/L Alkaline Phosphatase 78 (38-126) U/L Serum Total Protein 7.8 (6.3-8.2) g/dL Albumin 4.5 (3.5-5.0) g/dL Amylase 93 (30-110) U/L Lipase 39 (23-300) U/L Urine Color (Yellow) Urine Appearance (Clear) Urine pH (4.6-8.0) Ur Specific [place] (1.005-1.030) Urine Protein (Negative) Urine Glucose (UA) (Negative) mg/dL Urine Ketones (Negative) Urine Blood (Negative) Urine Nitrite (Negative) Urine Bilirubin (Negative) Urine Urobilinogen (0.2) mg/dL Ur Leukocyte Esterase (Negative) U Hyaline Cast (Auto) (0-2) /LPF Urine Microscopic RBC (0-5) /HPF Urine Microscopic WBC (0-5) /HPF Ur Epithelial Cells (None Seen) /HPF Urine Bacteria (None Seen) /HPF Urine Culture Reflexed (NO) 03/05/24 Range/Units 17:33 WBC (4.23-9.07) x10^3/uL RBC (4.63-6.08) x10^6/uL Hgb (13.7-17.5) g/dL Hct (40.1-51.0) % MCV (79.0-92.2) fL MCH (25.7-32.2) pg MCHC (32.3-36.5) g/dL RDW (11.6-14.4) % Plt Count (163-337) x10^3/uL MPV (9.4-12.4) fL Gran % (34.0-67.9) % Immature Gran % (Auto) (0.001-0.429) % Nucleat RBC Rel Count (0.00-0.2) % Eos # (Auto) (0.04-0.54) x10^3/uL Immature Gran # (Auto) (0.001-0.031) x10^3u/L Absolute Lymphs (auto) (1.32-3.57) x10^3/uL Absolute Monos (auto) (0.30-0.82) x10^3/uL Absolute Nucleated RBC (0.00-0.012) x10^3u/L Lymphocytes % (21.8-53.1) % Monocytes % (5.3-12.2) % Eosinophils % (0.8-7.0) % Basophils % (0.2-1.2) % Absolute Granulocytes (1.78-5.38) x10^3/uL Basophils # (0.01-0.08) x10^3/uL Sodium (135-145) mmol/L Potassium (3.5-5.1) mmol/L Chloride (98-107) mmol/L Carbon Dioxide (22-30) mmol/L Anion Gap (5-15) MEQ/L BUN (9-20) mg/dL Creatinine (0.66-1.25) mg/dL Estimated GFR ML/MIN Glucose (74-106) mg/dL Calcium (8.4-10.2) mg/dL Magnesium (1.6-2.3) mg/dL Total Bilirubin (0.2-1.3) mg/dL AST (17-59) U/L ALT (0-50) U/L Alkaline Phosphatase (38-126) U/L Serum Total Protein (6.3-8.2) g/dL Albumin (3.5-5.0) g/dL Amylase (30-110) U/L Lipase (23-300) U/L Urine Color Yellow (Yellow) Urine Appearance Clear (Clear) Urine pH 7.5 (4.6-8.0) Ur Specific [place] 1.010 (1.005-1.030) Urine Protein Negative (Negative) Urine Glucose (UA) Negative (Negative) mg/dL Urine Ketones Negative (Negative) Urine Blood Small A (Negative) Urine Nitrite Negative (Negative) Urine Bilirubin Negative (Negative) Urine Urobilinogen 0.2 (0.2) mg/dL Ur Leukocyte Esterase Negative (Negative) U Hyaline Cast (Auto) NONE SEEN (0-2) /LPF Urine Microscopic RBC 11-20 A (0-5) /HPF Urine Microscopic WBC 0-2 (0-5) /HPF Ur Epithelial Cells None Seen (None Seen) /HPF Urine Bacteria None Seen (None Seen) /HPF Urine Culture Reflexed NO (NO) - Progress Progress: unchanged Counseled pt/family regarding: lab results, diagnosis, need for follow-up, rad results Medical Desision Making - Diagnostic Testing Diagnostic test were ordered, analyzed, and reviewed by me: Yes Radiological Interpretation: Teleradiologist Report - Departure Departure Disposition: Home Clinical Impression: Diverticulitis Condition: Stable Critical Care Time: No Referrals: ALEJANDRO LUIS FNP [Primary Care Provider] - Follow up/PCP as directed Instructions: Diverticulitis Additional Instructions: Follow up with private doctor tomorrow. Prescriptions: Metronidazole 500 mg [Flagyl 500 MG] 500 mg PO Q8H #30 tablet
[2024-03-05 17:08] VITALS: TEMP 99.4
[2024-03-05 17:41] LABS: Appearance Clear (Clear); Bacteria None Seen /HPF (None Seen); Bilirubin Negative (Negative); Blood Small (Negative); Epithelial Cells None Seen /HPF (None Seen); Glucose, Urine Negative (Negative); Hyaline Casts NONE SEEN /LPF (0-2); Ketones Negative (Negative); Leukocyte Esterase Negative (Negative); Nitrite Negative (Negative); Ph 7.5 (4.6-8.0); Protein,Urine Dip Negative (Negative); Urobilinogen 0.2 mg/dL (0.2); WBC 0-2 /HPF (0-5)
[2024-03-05 17:52] LABS: Absolute Neutrophil Ct (ANC) 4.84 x10^3/uL (1.78-5.38); Basophil (Absolute #) 0.08 x10^3/uL (0.01-0.08); Eosinophil % 2.4 % (0.8-7.0); Eosinophil (Absolute #) 0.19 x10^3/uL (0.04-0.54); Hematocrit 47.9 % (40.1-51.0); Hemoglobin 16.5 g/dL (13.7-17.5); IMMATURE GRAN # 0.04 x10^3u/L (0.001-0.031); IMMATURE GRAN % 0.5 % (0.001-0.429); Lymphocyte (Absolute #) 1.98 x10^3/uL (1.32-3.57); Lymphocytes % 25.2 % (21.8-53.1); Mean Cell Volume 93.2 fL (79.0-92.2); Mean Corpuscular Hemoglobin 32.1 pg (25.7-32.2); Mean Corpuscular Hgb Concent. 34.4 g/dL (32.3-36.5); Mean Platelet Volume 8.6 fL (9.4-12.4); Monocyte (Absolute #) 0.73 x10^3/uL (0.30-0.82); Monocytes % 9.3 % (5.3-12.2); Neutrophil % 61.6 % (34.0-67.9); Platelet Count 217 x10^3/uL (163-337); Red Blood Count 5.14 x10^6/uL (4.63-6.08); Red Cell Distribution Width 13.3 % (11.6-14.4); White Blood Count 7.9 x10^3/uL (4.23-9.07)
[2024-03-05] MEDS ORDERED: TORAdol 30 mg Injection ONE (17:55)
[2024-03-05] MEDS: TORAdol 30 mg Injection IV ONE (17:57)
[2024-03-05 18:08] LABS: ALBUMIN 4.5 g/dL (3.5-5.0); ANION GAP 11.9 MEQ/L (5-15); BILIRUBIN,TOTAL 0.7 mg/dL (0.2-1.3); Calcium 9.1 mg/dL (8.4-10.2); Creatinine 1 1.19 mg/dL (0.66-1.25); EST GLOMERULAR FILTRATION RATE 67.8 ML/MIN; Potassium 4.2 mmol/L (3.5-5.1); Total Protein 7.8 g/dL (6.3-8.2)
[2024-03-05 18:41] VITALS: RESP 18
--- NOTE | 2024-03-05 20:25 | XRAY ---
CLINICAL HISTORY: left flank pain COMPARISON: Prior CT dated 05/01/2023. TECHNIQUE: Non-contrast CT of the abdomen and pelvis was performed, with the following protocol: axial images, and reconstructed coronal and sagittal images. One of the following dose reduction techniques was utilized for this exam: Automated exposure control, adjustment of the mA and/or kV according to patient size, and use of iterative reconstruction. FINDINGS: Abdomen: Liver: Normal in size, shape, and density. No focal lesions, cysts, or masses were identified. Few metallic densities are seen at the gastrohepatic pouch. Gallbladder and Biliary System: The gallbladder is normal in size and shape. No wall thickening, pericholecystic fluid, or gallstones were identified. Pancreas: Pancreatic head, body, and tail are visualized and appear normal in size and density. No pancreatic masses or calcifications were noted. Spleen: Normal in size, shape, and density. No splenic lesions or masses were identified. Kidneys and Adrenal Glands: Both kidneys are normal in size, shape, and position. Cortical thickness is within normal limits. No renal calculi or hydronephrosis. Left renal lower polar cyst measuring about 5.6 X 6.3 cm (Bosniak type I). Small right renal cortical cyst measuring about 1 cm (Bosniak type I). Adrenal glands are unremarkable. Abdominal Aorta and Vessels: Atheromatous calcifcation of the aorta & boh iliac vessels. Pelvis: Urinary Bladder: Normal in contour and wall thickness. No intraluminal lesions. Prostate: Normal in size and contour. No masses or abnormal thickening. Seminal Vesicles: Normal appearance without abnormal enlargement or mass. Peritoneal and Retroperitoneal Structures: No free fluid or abnormal fluid collections were identified within the abdomen or pelvis. No lymphadenopathy was noted. Bilateral inguinal hernias containing fat. Bowel: Diverticular disease of the descending colon with subtle surrounding fat smudging. The visualized bowel loops are normal in caliber and appearance. No evidence of bowel obstruction or wall thickening. Bones and Soft Tissues: Pelvic bones and soft tissues are unremarkable. No fractures or abnormal masses were identified. IMPRESSION: 1. Diverticular disease of the descending colon with subtle surrounding fat smudging. possibly an element of diverticulitis. 2. Bilateral renal cortical cysts (Bosniak type I). 3. Bilateral inguinal hernias containing fat. 4. Unchanged since the last study. Electronically Signed by: Nighat San MD. (03/05/2024 20:21:56 EDT)
[2024-03-05] MEDS ORDERED: FLAGYL 500 MG IVPB 500 MG/100 ML BAG IV ONE (21:16)
[2024-03-05] MEDS: FLAGYL 500 MG IVPB 500 MG/100 ML BAG IV STA (21:19)
[2024-03-05] MEDS ORDERED: Zofran 4 MG/2 ML VIAL ONE (21:56)
[2024-03-05] MEDS ORDERED: MORPHINE SULFATE 4 MG INJ ONE (21:57)
[2024-03-05] MEDS: Zofran 4 MG/2 ML VIAL IV ONE (22:00)
[2024-03-05] MEDS: MORPHINE SULFATE 4 MG INJ IV ONE (22:03)
[2024-03-05 22:06] VITALS: BP 135/93; PULSE 69; O2SAT 97
== END 2024-03-05 22:37 | disposition home or self-care (01) ==
LOC: ED 13:49
DX: K57.32 Diverticulitis of large intestine without perforation or abscess without bleeding (principal); R10.9 Unspecified abdominal pain; I10 Essential (primary) hypertension; Z79.85 Long-term (current) use of injectable non-insulin antidiabetic drugs; Z79.899 Other long term (current) drug therapy
CPT/HCPCS: 36000; 36415; 74176; 80053; 81001; 82150; 83690; 83735; 85025; 96374; 96375; 99284; J1885; J2270; J2405

== ENCOUNTER 2024-03-09 10:49 | Emergency (ER) | payer MEDICARE, BC, OTHER ==
--- NOTE | 2024-03-09 10:56 | ERPHSYRPT ---
- History of Present Illness Time Seen by Provider: 03/09/24 10:55 Historian: patient, family Exam Limitations: no limitations Physician History: This is a 63-year-old white male patient who arrives by private vehicle escorted by his spouse to be evaluated in the emergency department for worsening left lower quadrant abdominal pain. Patient has a history of recurrent diverticulitis and underwent a sigmoid colon resection in the distant past for this entity. Patient was seen in our emergency department 4 days ago with similar complaints of left lower quad abdominal pain and diagnosed with diverticulitis. Per patient report, he states that it was recommended that he be placed in the hospital for IV fluids and intravenous antibiotics and the patient declined. He was sent home with instructions to modify his diet and was placed on oral Flagyl. Despite the change in his diet and the oral Flagyl, his left lower quadrant symptoms are worsening and expanding per his report. He is nauseated but has not had any vomiting. The area of diverticulitis was descen ding colon. Patient's white blood cell count at that time was 16.5. Patient has a history of hypertension, hypothyroidism, depression, diabetes, coronary artery disease and psoriatic arthritis. Timing/Duration: day(s) (4), worse Activities at Onset: none Abdominal Pain Onset Location: LLQ Pain Radiation: no radiation Severity of Pain-Max: moderate Severity of Pain-Current: moderate Modifying Factors: Improves With: other. Worsens With: vomiting (Nausea but no vomiting) Associated Symptoms: fever/chills, nausea (At home but none now), No chest pain, No diarrhea, No shortness of breath, No vomiting Previous symptoms: same symptoms as today, recently seen, recently treated Allergies/Adverse Reactions: cefazolin Allergy (Verified 03/09/24 11:07) clarithromycin [From Biaxin] Allergy (Verified 03/09/24 11:07) Penicillins Allergy (Verified 03/09/24 11:07) Home Medications: Albuterol Sulfate [Albuterol Sulfate Hfa] 1 ea DAILY 06/11/21 [History] Citalopram Hydrobromide [Citalopram HBr] 1 ea DAILY 06/11/21 [History] Folic Acid 1 mg PO DAILY 06/11/21 [History] Levothyroxine Sodium [Levothyroxine] 125 mcg PO DAILY 06/11/21 [History] Lisinopril 10 mg [Zestril 10 MG] 20 mg DAILY 06/11/21 [History] Methotrexate Sodium 2.5 mg [Trexall 2.5 mg] 17.5 mg WEEKLY 06/11/21 [History] Amlodipine Besylate 5 mg [Norvasc 5 mg] 2.5 mg PO DAILY 03/05/24 [History] Eslicarbazepine Acetate [Aptiom] 1 ea DAILY 03/05/24 [History] Semaglutide [Wegovy] 1 mg SQ UD 03/05/24 [History] Testosterone Enanthate [Xyosted] 75 mg SQ UD 03/05/24 [History] Trazodone HCl 50 mg [Desyrel 50 mg] 50 mg PO DAILY 03/05/24 [History] Certolizumab Pegol [Cimzia] See Rx Instructions .ROUTE .COMPLEX 03/09/24 [History] Hx Tetanus, Diphtheria Vaccination/Date Given: No Hx Influenza Vaccination/Date Given: No Hx Pneumococcal Vaccination/Date Given: No Travel Risk - International Travel Have you traveled outside of the country in past 3 weeks: No - Emerging Infectious Disease Are you exhibiting symptoms associated with any current EIDs: No - Review of Systems Constitutional: Chills (At home but none now) Eyes: No Symptoms Ears, Nose, & Throat: No Symptoms Respiratory: No Symptoms Cardiac: No Symptoms Abdominal/Gastrointestinal: Abdominal Pain (Left lower quadrant), Nausea, Appetite Changes, No Vomiting, No Diarrhea, No Constipation Genitourinary Symptoms: No Symptoms Musculoskeletal: No Symptoms Skin: No Symptoms Neurological: No Symptoms Psychological: No Symptoms Endocrine: No Symptoms Hematologic/Lymphatic: No Symptoms Immunological/Allergic: No Symptoms All Other Systems: Reviewed and Negative - Past Medical History Pertinent Past Medical History: Yes Neurological History: Seizures Cardiac History: Coronary Artery Disease, Hypertension Endocrine Medical History: Hypothyroidism GI Medical History: Diverticulitis Other Medical History: soriaic arthritis,KIDNEY CYST 2023 - Past Surgical History Past Surgical History: Yes Gastrointestinal: Bowel Surgery Musculoskeletal: Orthopedic Surgery Other Surgical History: knee,shoulders,hip, - Social History Smoking Status: Never smoker Exposure to second hand smoke: No Drug Use: none Patient Lives Alone: Yes - Social Determinants of Health Will the patient participate in the screening: Declined to provide - Nursing Vital Signs Nursing Vital Signs: Initial Vital Signs Temperature 97.9 F 03/09/24 11:00 Pulse Rate 69 03/09/24 11:00 Respiratory Rate 12 03/09/24 11:00 Blood Pressure 173/97 03/09/24 11:00 O2 Sat by Pulse Oximetry 99 03/09/24 11:00 Pain Scale Pain Intensity 4 - Physical Exam General Appearance: no apparent distress, alert, anxiety Eye Exam: PERRL/EOMI, eyes nml inspection Ears, Nose, Throat Exam: normal ENT inspection, moist mucous membranes Neck Exam: normal inspection, non-tender, supple, full range of motion Respiratory Exam: normal breath sounds, lungs clear, airway intact, No chest tenderness, No respiratory distress Cardiovascular Exam: regular rate/rhythm, normal heart sounds, normal peripheral pulses Gastrointestinal/Abdomen Exam: soft, normal bowel sounds, tenderness (Left lower quadrant to palpation), guarding (Left lower quadrant to palpation), No rebound Rectal Exam: not done Back Exam: normal inspection, normal range of motion, No CVA tenderness, No vertebral tenderness Extremity Exam: normal inspection, normal range of motion, pelvis stable Neurologic Exam: alert, oriented x 3, cooperative, pharmacy benefit manager II-XII nml as tested, nml cerebellar function, nml station & gait, sensation nml Skin Exam: normal color, warm, dry Lymphatic Exam: No adenopathy SpO2 Interpretation: normal O2 Delivery: Room Air - Course Nursing assessment & vital signs reviewed: Yes Ordered Tests: Active Orders 24 hr Category Date Time Status IV Insertion STAT Care 03/09/24 11:54 Active ABDOMEN AND PELVIS W/0 CONTRAS [CT] Stat Exams 03/09/24 11:54 Completed AMYLASE Stat Lab 03/09/24 12:24 Completed BLOOD CULTURE Stat Lab 03/09/24 12:24 Received CBC W DIFF Stat Lab 03/09/24 12:24 Completed CMP Stat Lab 03/09/24 12:24 Completed CULTURE,URINE Stat Lab 03/09/24 11:56 Received LIPASE Stat Lab 03/09/24 12:24 Completed Lactic Acid Stat Lab 03/09/24 11:54 Completed UA W/RFX UR CULTURE Stat Lab 03/09/24 11:56 Completed Medication Summary Discontinued Medications Generic Name Dose Route Start Last Admin Trade Name Freq PRN Reason Stop Dose Admin Hydromorphone HCl 1 mg 03/09/24 11:54 03/09/24 12:06 Hydromorphone 1 Mg/1ml Inj IV 03/09/24 11:55 1 mg STAT ONE Administration Hydromorphone HCl Confirm 03/09/24 12:05 Hydromorphone 1 Mg/1ml Inj Administered 03/09/24 12:06 Dose 1 mg .ROUTE .STK-MED ONE Sodium Chloride 1,000 mls @ 999 mls/hr 03/09/24 11:54 03/09/24 13:14 Sodium Chloride 0.9% 1000 Ml IV 03/09/24 12:54 Infused .Q1H1M STA Infusion Sodium Chloride Confirm 03/09/24 12:05 Sodium Chloride 0.9% 1000 Ml Administered 03/09/24 12:06 Dose 1,000 mls @ ud .ROUTE .STK-MED ONE Ondansetron HCl 4 mg 03/09/24 11:54 03/09/24 12:06 Ondansetron Hcl 4 Mg/2 Ml Vial IV 03/09/24 11:55 4 mg STAT ONE Administration Ondansetron HCl Confirm 03/09/24 12:05 Ondansetron Hcl 4 Mg/2 Ml Vial Administered 03/09/24 12:06 Dose 4 mg .ROUTE .STK-MED ONE Lab/Rad Data: Laboratory Result Diagrams 03/09/24 12:24 03/09/24 12:24 Laboratory Results 03/09/24 03/09/24 03/09/24 Range/Units 12:24 12:24 11:56 WBC 7.1 (4.23-9.07) x10^3/uL RBC 5.20 (4.63-6.08) x10^6/uL Hgb 16.9 (13.7-17.5) g/dL Hct 48.0 (40.1-51.0) % MCV 92.3 H (79.0-92.2) fL MCH 32.5 H (25.7-32.2) pg MCHC 35.2 (32.3-36.5) g/dL RDW 13.3 (11.6-14.4) % Plt Count 222 (163-337) x10^3/uL MPV 8.8 L (9.4-12.4) fL Gran % 63.2 (34.0-67.9) % Immature Gran % (Auto) 1.0 H (0.001-0.429) % Nucleat RBC Rel Count 0.0 (0.00-0.2) % Eos # (Auto) 0.08 (0.04-0.54) x10^3/uL Immature Gran # (Auto) 0.07 H (0.001-0.031) x10^3u/L Absolute Lymphs (auto) 1.56 (1.32-3.57) x10^3/uL Absolute Monos (auto) 0.80 (0.30-0.82) x10^3/uL Absolute Nucleated RBC 0.00 (0.00-0.012) x10^3u/L Lymphocytes % 22.1 (21.8-53.1) % Monocytes % 11.3 (5.3-12.2) % Eosinophils % 1.1 (0.8-7.0) % Basophils % 1.3 H (0.2-1.2) % Absolute Granulocytes 4.46 (1.78-5.38) x10^3/uL Basophils # 0.09 H (0.01-0.08) x10^3/uL Sodium 129 L (135-145) mmol/L Potassium 4.2 (3.5-5.1) mmol/L Chloride 98 (98-107) mmol/L Carbon Dioxide 19 L (22-30) mmol/L Anion Gap 17.5 H (5-15) MEQ/L BUN 14 (9-20) mg/dL Creatinine 1.08 (0.66-1.25) mg/dL Estimated GFR 76.2 ML/MIN Glucose 91 (74-106) mg/dL Lactic Acid (0.4-2.0) Calcium 9.3 (8.4-10.2) mg/dL Total Bilirubin 0.80 (0.2-1.3) mg/dL AST 33 (17-59) U/L ALT 29 (0-50) U/L Alkaline Phosphatase 68 (38-126) U/L Serum Total Protein 7.4 (6.3-8.2) g/dL Albumin 4.5 (3.5-5.0) g/dL Amylase 78 (30-110) U/L Lipase 37 (23-300) U/L Urine Color Yellow (Yellow) Urine Appearance Cloudy A (Clear) Urine pH 7.0 (4.6-8.0) Ur Specific [place] 1.015 (1.005-1.030) Urine Protein Negative (Negative) Urine Glucose (UA) Negative (Negative) mg/dL Urine Ketones Negative (Negative) Urine Blood Small A (Negative) Urine Nitrite Negative (Negative) Urine Bilirubin Negative (Negative) Urine Urobilinogen 1.0 A (0.2) mg/dL Ur Leukocyte Esterase Trace A (Negative) U Hyaline Cast (Auto) NONE SEEN (0-2) /LPF Urine Microscopic RBC 21-50 A (0-5) /HPF Urine Microscopic WBC 0-2 (0-5) /HPF Ur Epithelial Cells None Seen (None Seen) /HPF Urine Bacteria None Seen (None Seen) /HPF Urine Culture Reflexed YES (NO) 03/09/24 Range/Units 11:54 WBC (4.23-9.07) x10^3/uL RBC (4.63-6.08) x10^6/uL Hgb (13.7-17.5) g/dL Hct (40.1-51.0) % MCV (79.0-92.2) fL MCH (25.7-32.2) pg MCHC (32.3-36.5) g/dL RDW (11.6-14.4) % Plt Count (163-337) x10^3/uL MPV (9.4-12.4) fL Gran % (34.0-67.9) % Immature Gran % (Auto) (0.001-0.429) % Nucleat RBC Rel Count (0.00-0.2) % Eos # (Auto) (0.04-0.54) x10^3/uL Immature Gran # (Auto) (0.001-0.031) x10^3u/L Absolute Lymphs (auto) (1.32-3.57) x10^3/uL Absolute Monos (auto) (0.30-0.82) x10^3/uL Absolute Nucleated RBC (0.00-0.012) x10^3u/L Lymphocytes % (21.8-53.1) % Monocytes % (5.3-12.2) % Eosinophils % (0.8-7.0) % Basophils % (0.2-1.2) % Absolute Granulocytes (1.78-5.38) x10^3/uL Basophils # (0.01-0.08) x10^3/uL Sodium (135-145) mmol/L Potassium (3.5-5.1) mmol/L Chloride (98-107) mmol/L Carbon Dioxide (22-30) mmol/L Anion Gap (5-15) MEQ/L BUN (9-20) mg/dL Creatinine (0.66-1.25) mg/dL Estimated GFR ML/MIN Glucose (74-106) mg/dL Lactic Acid 0.9 (0.4-2.0) Calcium (8.4-10.2) mg/dL Total Bilirubin (0.2-1.3) mg/dL AST (17-59) U/L ALT (0-50) U/L Alkaline Phosphatase (38-126) U/L Serum Total Protein (6.3-8.2) g/dL Albumin (3.5-5.0) g/dL Amylase (30-110) U/L Lipase (23-300) U/L Urine Color (Yellow) Urine Appearance (Clear) Urine pH (4.6-8.0) Ur Specific [place] (1.005-1.030) Urine Protein (Negative) Urine Glucose (UA) (Negative) mg/dL Urine Ketones (Negative) Urine Blood (Negative) Urine Nitrite (Negative) Urine Bilirubin (Negative) Urine Urobilinogen (0.2) mg/dL Ur Leukocyte Esterase (Negative) U Hyaline Cast (Auto) (0-2) /LPF Urine Microscopic RBC (0-5) /HPF Urine Microscopic WBC (0-5) /HPF Ur Epithelial Cells (None Seen) /HPF Urine Bacteria (None Seen) /HPF Urine Culture Reflexed (NO) - Progress Progress: improved, pain not gone completely, re-examined Progress Note: 03/09/24 12:12 My medical decision making and the assignment of at least moderate complexity was based on review of the patient's past medical history, review the patient's medication list, reviewed patient drug allergy list, history present illness and physical findings on examination. The workup includes placement of intravenous line, infusion of normal saline solution, infusion of Zofran intravenously, infusion of Dilaudid intravenously, CBC, CMP, lactic acid level, urinalysis, CT scan of the abdomen pelvis without contrast. Differential diagnosis includes but is not limited to worsening diverticulitis or other intra-abdominal/pelvic abnormality, pancreatitis, urinary tract infection 03/09/24 13:40 I interpreted the patient's laboratory data results. Patient does have mild hyponatremia with a level of 129. This is within his normal range when I looked back at his old sodium blood levels. His sodium levels typically range from 126-132. There are no other acute, emergent findings based on his laboratory data results. CT scan of the abdomen pelvis without contrast was interpreted by the radiologist and I reviewed the impression. The impression shows resolution of the prior inflammation causing mild diverticulitis. There is evidence of fecal stasis that was not as significant on the prior comparison study dated 03/05/2024. Counseled pt/family regarding: lab results, diagnosis, rad results Medical Desision Making - Independent Historian Additional History obtained from: Spouse - Diagnostic Testing Diagnostic test were ordered, analyzed, and reviewed by me: Yes Radiological Interpretation: Reviewed by me, Teleradiologist Report - Risk of complications Low Risk: Low risk of morbidity from additional dx testing or treatment - Departure Departure Disposition: Home Clinical Impression: Left lower quadrant abdominal pain, Constipation, Chronic hyponatremia Condition: Stable Critical Care Time: No Referrals: ALEJANDRO LUIS FNP [Primary Care Provider] - Follow up/PCP as directed Additional Instructions: Drink plenty of fluids. Take all your medications as prescribed. Call your pre scribing provider and your jumpbasting armhole baster later today, 03/09/2024 to make arrangements for follow-up appointment to be seen in the next 3 to 5 days. Return to the emergency department if symptoms worsen.
[2024-03-09 11:14] VITALS: TEMP 97.9; O2SAT 99
[2024-03-09] MEDS ORDERED: Sodium Chloride 0.9% 1000 ML 1,000 ML ONE (12:05)
[2024-03-09] MEDS ORDERED: Hydromorphone 1 mg/ml Injection ONE (12:05)
[2024-03-09] MEDS ORDERED: Zofran 4 MG/2 ML VIAL ONE (12:05)
[2024-03-09] MEDS: Sodium Chloride 0.9% 1000 ML 1,000 ML IV STA (12:06)
[2024-03-09] MEDS: Zofran 4 MG/2 ML VIAL IV ONE (12:06)
[2024-03-09] MEDS: Hydromorphone 1 mg/ml Injection IV ONE (12:06)
[2024-03-09 12:07] VITALS: RESP 18
[2024-03-09 12:27] LABS: Absolute Neutrophil Ct (ANC) 4.46 x10^3/uL (1.78-5.38); BASOPHIL % 1.3 % (0.2-1.2); Basophil (Absolute #) 0.09 x10^3/uL (0.01-0.08); Eosinophil % 1.1 % (0.8-7.0); Eosinophil (Absolute #) 0.08 x10^3/uL (0.04-0.54); Hemoglobin 16.9 g/dL (13.7-17.5); IMMATURE GRAN # 0.07 x10^3u/L (0.001-0.031); Lymphocyte (Absolute #) 1.56 x10^3/uL (1.32-3.57); Lymphocytes % 22.1 % (21.8-53.1); Mean Cell Volume 92.3 fL (79.0-92.2); Mean Corpuscular Hemoglobin 32.5 pg (25.7-32.2); Mean Corpuscular Hgb Concent. 35.2 g/dL (32.3-36.5); Mean Platelet Volume 8.8 fL (9.4-12.4); Monocytes % 11.3 % (5.3-12.2); Neutrophil % 63.2 % (34.0-67.9); Platelet Count 222 x10^3/uL (163-337); Red Cell Distribution Width 13.3 % (11.6-14.4); White Blood Count 7.1 x10^3/uL (4.23-9.07)
[2024-03-09 12:38] LABS: Appearance Cloudy (Clear); Bacteria None Seen /HPF (None Seen); Bilirubin Negative (Negative); Blood Small (Negative); Epithelial Cells None Seen /HPF (None Seen); Glucose, Urine Negative (Negative); Hyaline Casts NONE SEEN /LPF (0-2); Ketones Negative (Negative); Leukocyte Esterase Trace (Negative); Nitrite Negative (Negative); Protein,Urine Dip Negative (Negative); RBC 21-50 /HPF (0-5); Specific Gravity 1.015 (1.005-1.030); WBC 0-2 /HPF (0-5)
[2024-03-09 12:44] LABS: ALBUMIN 4.5 g/dL (3.5-5.0); ANION GAP 17.5 MEQ/L (5-15); BILIRUBIN,TOTAL 0.8 mg/dL (0.2-1.3); Calcium 9.3 mg/dL (8.4-10.2); Creatinine 1 1.08 mg/dL (0.66-1.25); EST GLOMERULAR FILTRATION RATE 76.2 ML/MIN; Potassium 4.2 mmol/L (3.5-5.1); Total Protein 7.4 g/dL (6.3-8.2)
[2024-03-09 13:04] VITALS: PULSE 73
--- NOTE | 2024-03-09 13:06 | XRAY ---
Indication: Left lower quadrant pain. Multiple contiguous axial images obtained through the abdomen and pelvis without contrast. Comparison: March 05, 2024. Lung bases remain clear. Heart not enlarged. Stable GE junction surgical clips. Noncontrasted stomach and bowel loops appear nonobstructed. Appendectomy reported. There is worsening mild diffuse scattered colonic fecal debris greatest in right hemicolon. Also stable scattered descending and sigmoid diverticulosis without diverticulitis. Stable large left lower and tiny right upper renal exophytic cysts. No free fluid/air. Remaining liver, gallbladder, pancreas, spleen, adrenal glands, kidneys, ureters, and bladder are unremarkable for noncontrast exam. Again minimal aortoiliac calcifications are AAA. Osseous structures intact again with mild multilevel thoracolumbar degenerative spondylosis and right L5 spondylolysis without listhesis. Impression: Compared to ER CT abdomen/pelvis 4 days ago, there is again mild diffuse fecal stasis, colonic diverticulosis, bilateral renal cysts, chronic bony findings, and arteriosclerotic disease. No new/acute abnormalities on this noncontrast exam.
[2024-03-09 13:42] VITALS: BP 150/97
== END 2024-03-09 13:50 | disposition home or self-care (01) ==
LOC: ED 10:49
DX: K59.00 Constipation, unspecified (principal); R10.32 Left lower quadrant pain; E87.1 Hypo-osmolality and hyponatremia; R11.0 Nausea; I10 Essential (primary) hypertension; E11.9 Type 2 diabetes mellitus without complications; Z79.85 Long-term (current) use of injectable non-insulin antidiabetic drugs; Z79.899 Other long term (current) drug therapy
CPT/HCPCS: 36000; 36415; 74176; 80053; 81001; 82150; 83605; 83690; 85025; 87040; 87086; 96360; 96374; 96375; 99284; J1171; J2405